=== PATIENT | female | born 1960 | race Caucasian/White ===

== ENCOUNTER 2021-12-12 13:51 | Observation (INO) | payer OTHER ==
[~2021-12-12] VITALS: Ht 165.1 cm; Wt 52.2 kg
[2021-12-12 15:12] LABS: HEMOGLOBIN 12.4 gm/dl (12.3-15.3); RED BLOOD COUNT 4.18 M/UL (4.00-5.10); WHITE BLOOD COUNT 10.2 K/UL (4.5-11.0)
[2021-12-12 15:56] LABS: BUN/CREATININE RATIO 15 (0-10)
[2021-12-12 16:18] LABS: BORDETELLA PARAPERTUSSIS Not Detected (Not Detectd); BORDETELLA PERTUSSIS Not Detected (Not Detectd); CHLAMYDIA PNEUMONIAE Not Detected (Not Detectd); CORONAVIRUS HKU1 Not Detected (Not Detectd); CORONAVIRUS NL63 Not Detected (Not Detectd); CORONAVIRUS OC43 Not Detected (Not Detectd); CORONOAVIRUS 229E Not Detected (Not Detectd); HUMAN METAPNEUMOVIRUS Not Detected (Not Detectd); HUMAN RHINOVIRUS/ENTEROVIRUS Not Detected (Not Detectd); INFLUENZA A Not Detected (Not Detectd); INFLUENZA B Not Detected (Not Detectd); MYCOPLASMA PNEUMONIAE Not Detected (Not Detectd); PARAINFLUENZA VIRUS 1 Not Detected (Not Detectd); PARAINFLUENZA VIRUS 2 Not Detected (Not Detectd); PARAINFLUENZA VIRUS 3 Not Detected (Not Detectd); PARAINFLUENZA VIRUS 4 Not Detected (Not Detectd); RESPIRATORY SYNCYTIAL VIRUS Not Detected (Not Detectd)
[2021-12-12 17:16] LABS: SARS-CoV-2 DETECTED (Not Detectd)
[2021-12-13 06:37] LABS: HEMOGLOBIN 11.8 gm/dl (12.3-15.3); RED BLOOD COUNT 4.06 M/UL (4.00-5.10)
[2021-12-13 06:38] LABS: WHITE BLOOD COUNT 6.5 K/UL (4.5-11.0)
[2021-12-13 07:03] LABS: BUN/CREATININE RATIO 15 (0-10)
[2021-12-13] MEDS ORDERED: IBU400 MG PO (09:47)
[2021-12-13] MEDS ORDERED: LORATADINE10 MG PO (09:48)
[2021-12-13] MEDS ORDERED: TIADYLT ER120 MG PO (09:49)
[2021-12-13] MEDS ORDERED: HYDROCHLOROTHIA25 MG PO (09:49)
== END 2021-12-13 15:06 | disposition home or self-care (01) ==
LOC: ER1 13:51 → CDU 17:47 → MED SURG 4 17:47
PROVIDERS: Preventive Medicine Occupational Medicine; ADMIT Internal Medicine
DX: G93.40 Encephalopathy, unspecified (principal); U07.1 COVID-19; I10 Essential (primary) hypertension; E87.6 Hypokalemia
CPT/HCPCS: 36600; 70450; 71045; 80048; 80053; 80307; 81001; 82009; 82140; 82533; 82550; 82553; 82728; 82803; 83605; 83690; 83735; 83880; 84132; 84439; 84443; 84484; 85025; 85610; 85652; 86140; 87040; 87633; 93005; 93880; 96372; 96374; 96375; 96376; 99285; G0378; J0696; J1650; J3475